=== PATIENT | female | born 1945 | race Native Hawaiian/Other Pacific Islander ===

== ENCOUNTER 2017-12-10 13:02 | Outpatient (CLI) | payer OTHER, BC | END 2017-12-10 23:38 | disposition home or self-care (01) | LOC: RESP 13:02 | DX: R00.2 Palpitations (principal) | CPT/HCPCS: 93225 ==

== ENCOUNTER 2018-06-24 12:02 | Outpatient (CLI) | payer OTHER, BC | END 2018-06-24 19:48 | disposition home or self-care (01) | LOC: LABW 12:02 | DX: R19.7 Diarrhea, unspecified (principal) | CPT/HCPCS: 82272; 87015; 87045; 87205; 87324; 87328; 87329; 87449; 87899 ==

== ENCOUNTER → 2019-03-13 | Outpatient (CLI) | payer OTHER, BC | LOC: RAD 12:39 | DX: M25.511 Pain in right shoulder (principal); M25.552 Pain in left hip ==

== ENCOUNTER 2020-08-29 15:44 | Outpatient (CLI) | payer OTHER, BC | END 2020-08-29 20:15 | disposition home or self-care (01) | LOC: MAMMO 15:44 | DX: Z12.31 Encounter for screening mammogram for malignant neoplasm of breast (principal) ==

== ENCOUNTER 2020-09-12 08:55 | Outpatient (CLI) | payer OTHER, BC | END 2020-09-12 22:13 | disposition home or self-care (01) | LOC: RESP 08:55 → MRI 09:00 → RESP 09:00 → MRI 11:00 → RESP 22:13 | DX: F03.90 Unspecified dementia, unspecified severity, without behavioral disturbance, psychotic disturbance, mood disturbance, and anxiety (principal) ==

== ENCOUNTER 2023-08-31 09:19 | Inpatient (IN) | payer BC ==
[~2023-08-31] VITALS: Ht 162.6 cm; Wt 55.6 kg
[2023-08-31] VITALS (8 sets, daily range): BP systolic 125–178; BP diastolic 51–82; TEMP 96.1–102.8; Ht 162.6 cm; Wt 55.6 kg
[2023-08-31 09:33] LABS: PLATELET COUNT 195 K/uL (152-353)
[2023-08-31 10:06] LABS: POTASSIUM 3.1 mmol/L (3.6-5.2)
[2023-08-31] MEDS ORDERED: QUET300T PO (13:43)
[2023-08-31] MEDS ORDERED: VENLAFAXINE HC100 MG PO (13:44)
[2023-08-31] MEDS ORDERED: LIPITOR20 MG PO (13:44)
[2023-08-31] MEDS ORDERED: QUET100T2 PO (13:45)
[2023-08-31] MEDS ORDERED: LEVO0.0218 PO (13:45)
[2023-08-31] MEDS ORDERED: DONE5TAB PO (13:46)
[2023-08-31] MEDS ORDERED: DICYCLOMINE HYD20 MG PO (13:46)
[2023-08-31] MEDS ORDERED: QUETIAPINE50 MG PO (13:48)
[2023-08-31] MEDS ORDERED: METO25TA4 PO (13:49)
[2023-09-01 04:00] VITALS: BP 127/55; TEMP 98.4
[2023-09-01 04:54] LABS: PLATELET COUNT 169 K/uL (152-353)
[2023-09-01 05:11] LABS: POTASSIUM 3.2 mmol/L (3.6-5.2)
[2023-09-01 08:00] VITALS: BP 166/76; TEMP 97.5
[2023-09-01 12:00] VITALS: BP 155/81; TEMP 98.1
[2023-09-01 20:00] VITALS: BP 155/83; TEMP 98.5
[2023-09-02 04:50] LABS: PLATELET COUNT 170 K/uL (152-353)
[2023-09-02 05:10] LABS: POTASSIUM 4.1 mmol/L (3.6-5.2)
[2023-09-02 12:15] VITALS: BP 133/75; TEMP 97
[2023-09-02 16:00] VITALS: BP 141/73; TEMP 96.8
[2023-09-02 20:00] VITALS: BP 174/84; TEMP 98.8
[2023-09-03 04:00] VITALS: BP 114/61; TEMP 98.7
[2023-09-03 08:00] VITALS: BP 128/71; TEMP 97.9
[2023-09-03] MEDS ORDERED: CEFD300C2 PO (13:37)
[2023-09-03] MEDS ORDERED: LEVE500T5 PO (14:33)
== END 2023-09-03 19:12 | disposition home health service (06) | DRG 689 ==
LOC: ED 09:19 → MED/SURG 11:36
PROVIDERS: Family Medicine; Internal Medicine; ADMIT Nurse Practitioner Family; ATTEND Internal Medicine Endocrinology, Diabetes & Metabolism
DX: N39.0 Urinary tract infection, site not specified (principal); G92.8 Other toxic encephalopathy; R56.9 Unspecified convulsions; F03.90 Unspecified dementia, unspecified severity, without behavioral disturbance, psychotic disturbance, mood disturbance, and anxiety; R41.82 Altered mental status, unspecified; B96.1 Klebsiella pneumoniae [K. pneumoniae] as the cause of diseases classified elsewhere; E03.8 Other specified hypothyroidism; E87.6 Hypokalemia; I10 Essential (primary) hypertension; E78.49 Other hyperlipidemia
CPT/HCPCS: 36415; 80048; 80053; 80307; 81000; 83605; 83690; 84443; 84484; 85027; 87077; 87086; 87088; 87186; 93005; 96361; 96365; 96367; 96375; 96376; 99284; J0696; J1953; J2060; J3480